=== PATIENT | male | born 1940 | race Caucasian/White ===

== ENCOUNTER 2016-12-13 20:28 | Emergency (ER) | payer MEDICARE ==
[~2016-12-13] VITALS: Ht 177.8 cm; Wt 85.0 kg
[2016-12-13 20:29] VITALS: BP 161/73; PULSE 68; RESP 18; TEMP 97.9; O2SAT 95
[2016-12-13] MEDS ORDERED: PROPARACAINE HCL 0.5% OPHT SOLN 15 ML BTL EACH EYE ONE (21:30)
--- NOTE | 2016-12-13 21:45 | PD ---
HPI Chief Complaint: Eye Problems/Injury Time Seen by Provider: 21:36 Travel History International Travel<30 days: No Contact w/Intl Traveler<30days: No Traveled to known affect area: No History of Present Illness HPI 75-year-old white male presents to emergency department for evaluation of left eye pain. He states that approximately 2 hours prior to arrival he developed sudden discomfort in his left eye while showering at the [facility]. He states that he had foreign body sensation. He is unsure whether a megha of paint or rust had gone into his eye. He states that he had irrigated his eye out with shower water but still persisted with discomfort. He denies any visual changes. No discharge, matting or tearing. No photophobia. He used some Visine without relief. He is up-to-date with immunizations. He denies any recent illness. He does not work contacts. [facility] Past Medical History Narrative Medical Hypertension, hypercholesterolemia, gout, ED, anxiety, depression Cardiovascular Problems: Yes (HTN) Respiratory: Yes (COPD) Tetanus Vaccination: < 5 Years Past Surgical History Narrative Surgical Basal cell carcinoma both forearms Other Surgery: Yes (BT FOREARM SKIN CA REMOVAL) Social History Alcohol Use: No Tobacco Use: No Substance Use: No Allergies-Medications (Allergen,Severity, Reaction): Coded Allergies: No Known Allergies (Unverified , 12/13/16) Review of Systems Except as stated in HPI: all other systems reviewed are Neg General / Constitutional: No: Fever, Chills Eyes: Positive: Redness, Foreign Body Sensation, Pain, No: Diploplia, Blurred Vision, Photophobia, Drainage, Tearing, Visual changes HENT: No: Headaches, Vertigo Cardiovascular: No: Chest Pain or Discomfort, Palpitations Respiratory: No: Cough, Shortness of Breath Gastrointestinal: No: Nausea, Vomiting Physical Exam Narrative GENERAL: This is a well-nourished, well-developed patient, in no apparent distress. Visual acuity in the right eye is 20/30 and 20/40 in the left eye without glasses. SKIN: No rashes, ecchymoses. He has sutures in both forearms. Actinic keratoses scattered. Warm and dry. HEAD: Atraumatic. Normocephalic. EYES: PERRL, EOMI, no discharge or injection in the right eye. No scleral icterus. The left eye is injected. Ophthaine is instilled in both eyes. Lids are flipped and no foreign body seen. Ocular pressure in the right eye is 9 and ocular pressure in the left is 10. Funduscopic exam is unremarkable. Fluorescein stain is negative for corneal abrasion or ulcer. Patient has a pinguecula bilaterally. EARS: Clear NOSE: Nasal turbinates appear normal. THROAT: Mucosa pink and moist. Airway patent. NECK: Trachea midline. supple, moves head freely. LUNGS: Clear to auscultation. CV: Regular in rhythm. ABDOMEN: Soft nontender. EXT: No clubbing cyanosis or edema. Data Data Last Documented VS Vital Signs Date Time Temp Pulse Resp B/P Pulse Ox O2 Delivery O2 Flow Rate FiO2 12/13/16 20:29 97.9 68 18 161/73 95 Room Air Orders Proparacaine 0.5% Opth Soln (Alcaine 0.5 (12/13/16 21:30) MDM Medical Decision Making Medical Screen Exam Complete: Yes Emergency Medical Condition: Yes Medical Record Reviewed: Yes Differential Diagnosis MDM: High Differential diagnoses: Acute conjunctivitis (bacterial, viral, allergic, traumatic), glaucoma, iritis, traumatic globe injury, foreign body, corneal abrasion, corneal ulcer, diabetic retinopathy, photokeratitis, herpes keratitis , CMV retinitis Narrative Course Patient's exam is unrevealing at this time. I've explained to him that he may have had a foreign body which has been resolved now has posttraumatic pain. I' ve also informed him that sometimes retinal problems may present like this and I would recommend a retinal evaluation. This is left eye pain Diagnosis Primary Impression: Acute left eye pain Referrals: Shireen Hernandez MD 1 day Patient Instructions: General Instructions Additional Instructions: Rest. Tylenol for pain. Follow-up with the eye doctor tomorrow for recheck. Return to the ER if any problems. Med/Other Pt SpecificInfo: No Meds Exist/No RX given Disposition: 01 DISCHARGE HOME Condition: Adrian Cline Dec 13, 2016 21:45
== END 2016-12-13 21:50 | disposition home or self-care (01) ==
LOC: NEPB 20:28
DX: H57.12 Ocular pain, left eye (principal); H11.153 Pinguecula, bilateral; I10 Essential (primary) hypertension; E78.00 Pure hypercholesterolemia, unspecified; Z87.39 Personal history of other diseases of the musculoskeletal system and connective tissue; Z86.59 Personal history of other mental and behavioral disorders; Z86.79 Personal history of other diseases of the circulatory system; Z87.09 Personal history of other diseases of the respiratory system
CPT/HCPCS: 99283

== ENCOUNTER 2017-01-19 10:49 | Emergency (ER) | payer MEDICARE ==
[~2017-01-19] VITALS: Ht 180.3 cm; Wt 85.0 kg
[2017-01-19 10:50] VITALS: BP 141/70; PULSE 75; RESP 16; TEMP 98; O2SAT 97
[2017-01-19 11:00] VITALS: BP 151/71; PULSE 60; RESP 20; O2SAT 96
[2017-01-19] MEDS ORDERED: SODIUM CHLOR 0.9% 1000 ML INJ 1,000 ML IV SCH (11:15)
[2017-01-19] MEDS ORDERED: SODIUM CHLORIDE 0.9% FLUSH 10 ML FLUSH IV FLUSH PRN (11:15)
[2017-01-19] MEDS ORDERED: AMBI10TA PO (11:16)
[2017-01-19] MEDS ORDERED: ALLO100T PO (11:16)
[2017-01-19] MEDS ORDERED: LIPI20TA PO (11:16)
[2017-01-19] MEDS ORDERED: AMLO5 PO (11:16)
[2017-01-19] MEDS ORDERED: ALPR.25 PO (11:16)
[2017-01-19] MEDS ORDERED: HYDR-3516 PO (11:16)
[2017-01-19] MEDS ORDERED: ALTASE (11:16)
[2017-01-19] MEDS ORDERED: BUPR150CR PO (11:16)
--- NOTE | 2017-01-19 11:17 | PD ---
HPI Chief Complaint: Pain: Acute or Chronic Time Seen by Provider: 11:17 Travel History International Travel<30 days: No Contact w/Intl Traveler<30days: No Traveled to known affect area: No History of Present Illness HPI 76-year-old male with a history of hypertension, hyperlipidemia, gout, anxiety, chronic hip pain presents to the emergency department for evaluation of left flank pain for 3 days. Patient states 3 days ago he bent over to reach inside his trash can leaning on his left side and felt a pop in his left side. States that he's had pain in his left side and back aggravated with movement for the past 3 days. Describes it as a sharp pain. States that the pain is improved with rest. He states that the pain does radiate to his left abdomen. Denies any fever, chills, nausea, vomiting, diarrhea, constipation, chest pain, shortness of breath, cough or cold symptoms, dysuria. States he has been taking Lortab 5325 mg tablets with some improvement of symptoms. Patient has a history of bladder cancer and prostate cancer, status post resection of bladder tumor and radiation for prostate cancer, states he does self- catheterize as a result. Denies any prior abdominal surgeries. Patient does not have a PCP here in the area, he lives in [place] and is here visiting as he has a boat here. No other complaints. PFSH Past Medical History Cardiovascular Problems: Yes (HTN) COPD: Yes Hypertension: Yes Respiratory: Yes (COPD) Influenza Vaccination: Yes Past Surgical History Other Surgery: Yes (BT FOREARM SKIN CA REMOVAL) Social History Alcohol Use: No Tobacco Use: No Substance Use: No Allergies-Medications (Allergen,Severity, Reaction): Coded Allergies: No Known Allergies (Unverified , 12/13/16) Reported Meds & Prescriptions Reported Meds & Active Scripts Active Aspirin 325 Mg Tab 325 Mg PO DAILY Cipro (Ciprofloxacin HCl) 500 Mg Tab 500 Mg PO BID 7 Days Percocet (Oxycodone-Acetaminophen) 5-325 mg Tab 1 Tab PO Q6H PRN Reported Hydrocodone-Acetaminophen 5-325 mg Tab 1 Tab PO Q4H PRN Xanax (Alprazolam) 0.25 Mg Tab Unknown Dose PO Q4H PRN [Altase] 10 Mg DAILY Norvasc (Amlodipine Besylate) 5 Mg Tab 5 Mg PO DAILY Lipitor (Atorvastatin Calcium) 20 Mg Tab 20 Mg PO HS Allopurinol 100 Mg Tab 100 Mg PO DAILY Ambien (Zolpidem Tartrate) 10 Mg Tab 10 Mg PO HS PRN Wellbutrin SR 12 HR (Bupropion HCl) 150 Mg Tab 150 Mg PO Q12HR Review of Systems Except as stated in HPI: all other systems reviewed are Neg Physical Exam Narrative GENERAL: Well-nourished and well-developed pleasant male patient in no acute distress who is nontoxic appearing. SKIN: Warm and dry. HEAD: Normocephalic and atraumatic. EYES: No injection, drainage, or hyphema noted. PERRLA. EOMI. ENT: No nasal drainage noted. Oropharynx is clear. NECK: Supple and the trachea is midline. CARDIOVASCULAR: Regular rate and rhythm. RESPIRATORY: Breath sounds are equal bilaterally with no accessory muscle use, wheezing, rhonchi, or crackles. CHEST: Tenderness to palpation of left ribs 7 and 8 axillary region extending to back. GASTROINTESTINAL: Tenderness to palpation of left upper and left mid abdomen. Abdomen is soft and nondistended. Negative McBurney's point. Negative Mathur' s sign. MUSCULOSKELETAL: No obvious deformities, swelling, cyanosis, or ecchymosis is present throughout the upper and lower extremities. Patient has full range of motion without any signs of neurovascular compromise. Strength 5/5 upper and lower extremities equal bilaterally. DP pulses are 2+ bilaterally. Capillary refill is within normal limits. BACK: No midline bony point tenderness, or crepitus noted throughout the thoracic and lumbar vertebrae. NEUROLOGICAL: Awake, alert, and oriented. Normal speech and gait. Cranial nerves are grossly intact. Data Data Last Documented VS Vital Signs Date Time Temp Pulse Resp B/P Pulse Ox O2 Delivery O2 Flow Rate FiO2 01/19/17 14:06 58 16 145/73 98 Room Air 01/19/17 10:50 98.0 Orders Complete Blood Count With Diff (01/19/17 11:15) Comprehensive Metabolic Panel (01/19/17 11:15) Lipase (01/19/17 11:15) Urinalysis - C+S If Indicated (01/19/17 11:15) Ct Abd/Pel W Iv Contrast(Rout) (01/19/17 11:15) Iv Access Insert/Monitor (01/19/17 11:15) Ecg Monitoring (01/19/17 11:15) Oximetry (01/19/17 11:15) Sodium Chlor 0.9% 1000 Ml Inj (Ns 1000 M (01/19/17 11:15) Sodium Chloride 0.9% Flush (Ns Flush) (01/19/17 11:15) Chest, Single Ap (01/19/17 11:15) Urine Culture (01/19/17 11:30) Iohexol 350 Inj (Omnipaque 350 Inj) (01/19/17 13:31) Labs Laboratory Tests Test 01/19/17 01/19/17 11:25 11:30 White Blood Count 9.1 TH/MM3 Red Blood Count 4.11 MIL/MM3 Hemoglobin 13.6 GM/DL Hematocrit 38.8 % Mean Corpuscular Volume 94.5 FL Mean Corpuscular Hemoglobin 33.0 PG Mean Corpuscular Hemoglobin 35.0 % Concent Red Cell Distribution Width 13.5 % Platelet Count 212 TH/MM3 Mean Platelet Volume 8.7 FL Neutrophils (%) (Auto) 73.7 % Lymphocytes (%) (Auto) 13.6 % Monocytes (%) (Auto) 11.5 % Eosinophils (%) (Auto) 0.8 % Basophils (%) (Auto) 0.4 % Neutrophils # (Auto) 6.7 TH/MM3 Lymphocytes # (Auto) 1.2 TH/MM3 Monocytes # (Auto) 1.0 TH/MM3 Eosinophils # (Auto) 0.1 TH/MM3 Basophils # (Auto) 0.0 TH/MM3 CBC Comment DIFF FINAL Differential Comment Sodium Level 140 MEQ/L Potassium Level 3.8 MEQ/L Chloride Level 106 MEQ/L Carbon Dioxide Level 26.4 MEQ/L Anion Gap 8 MEQ/L Blood Urea Nitrogen 10 MG/DL Creatinine 1.05 MG/DL Estimat Glomerular Filtration 68 ML/MIN Rate Random Glucose 107 MG/DL Calcium Level 9.3 MG/DL Total Bilirubin 0.6 MG/DL Aspartate Amino Transf 14 U/L (AST/SGOT) Alanine Aminotransferase 21 U/L (ALT/SGPT) Alkaline Phosphatase 87 U/L Total Protein 7.0 GM/DL Albumin 3.6 GM/DL Lipase 158 U/L Urine Color YELLOW Urine Turbidity HAZY Urine pH 5.5 Urine Specific [place] 1.012 Urine Protein TRACE mg/dL Urine Glucose (UA) NEG mg/dL Urine Ketones NEG mg/dL Urine Occult Blood SMALL Urine Nitrite NEG Urine Bilirubin NEG Urine Urobilinogen LESS THAN 2.0 MG/DL Urine Leukocyte Esterase LARGE Urine RBC 16 /hpf Urine WBC 143 /hpf Urine Squamous Epithelial 1 /hpf Cells Urine Renal Epithelial Cells <1 /hpf Urine Bacteria RARE /hpf Microscopic Urinalysis Comment CULTURE INDICATED MDM Medical Decision Making Medical Screen Exam Complete: Yes Emergency Medical Condition: Yes Differential Diagnosis Muscle strain versus muscle spasm versus rib contusion versus fracture versus colitis versus diverticulitis versus pyelonephritis Narrative Course 76-year-old male presents to the emergency department for evaluation of left side pain after bending over several days ago. Patient is afebrile, vital signs are stable. He does have tenderness along the ribs and his pain seems to mostly be musculoskeletal however he does have tenderness in his left mid and upper abdomen. IV access is obtained, labs were drawn and sent. Chest x-ray is been ordered and is pending. CT of the abdomen and pelvis has been ordered and is pending. Chest x-ray is negative for any acute abnormalities. CBC is unremarkable. Urinalysis shows small occult blood, large leukocyte esterase, 16 red blood cells, 143 white blood cells, rare bacteria. CMP is unremarkable. CT of the abdomen and pelvis with IV contrast shows 5 mm nonobstructing left renal stone, diffuse atherosclerotic plaque throughout the aorta and inflamed vessels with a suspected high-grade stenosis of the right common iliac artery. Colonic diverticulosis without acute abnormality. Patient has remained stable and without complaint while here in the emergency department. He does report that he has intermittent right buttock pain aggravated with walking and alleviated with rest, this is been ongoing for years. He is lower extremities are neurovascularly intact, DP pulses are palpable bilaterally and capillary refill is within normal limits. Discussed with the patient that he will need to follow-up with a vascular specialist as an outpatient regarding this atherosclerosis and we will start the patient on aspirin daily. Patient is given the information of local vascular surgeon on- call. The patient will also be prescribed antibiotics for urinary tract infection and pain medication for his left flank pain. Patient verbalizes understanding and agreement with treatment plan. I discussed the case with my attending physician Dr. Sanchez who is aware of the patients history, physical examination findings, and treatment plan. Diagnosis Primary Impression: Left flank pain Additional Impressions: Kidney stone Urinary tract infection Qualified Code: T83.511A - Urinary tract infection associated with catheterization of urinary tract, unspecified indwelling urinary catheter type, initial encounter Atherosclerosis of lower extremity with intermittent claudication Qualified Code: I70.211 - Atherosclerosis of [place] artery of right lower extremity with intermittent claudication Referrals: Ger Mesa MD Patient Instructions: Catheter-associated Urinary Tract Infection (ED), Flank Pain (ED), General Instructions Additional Instructions: Rest. Take medications as prescribed. Do not take Lortab simultaneously with Percocet. Follow-up with a vascular surgeon regarding atherosclerosis of right common iliac artery. Return to the ED for any acute worsening of symptoms. Please print off labs and imaging reports for patient to take with him. Med/Other Pt SpecificInfo: Prescription(s) given Scripts Aspirin 325 Mg [id number] Mg PO DAILY #30 TAB Ref 0 Prov:Vera Sanchez MD 01/19/17 Ciprofloxacin (Cipro)500 Mg [id number] Mg PO BID 7 Days Ref 0 Prov:Vera Sanchez MD 01/19/17 Oxycodone-Acetaminophen (Percocet)5-325 mg Tab1 Tab PO Q6H PRN (PAIN GREATER THAN 6) #15 TAB Ref 0 Prov:Vera Sanchez MD 01/19/17 Disposition: 01 DISCHARGE HOME Condition: Stable Elisa Mar Jan 19, 2017 11:17
[2017-01-19 11:51] LABS: AUTOMATED NEUTROPHIL # 6.7 TH/MM3 (1.8-7.7); BASOPHIL % 0.4 % (0.0-2.0); EOSINOPHIL # 0.1 TH/MM3 (0-0.4); EOSINOPHIL % 0.8 % (0.0-4.0); HEMATOCRIT 38.8 % (39.0-51.0); HEMO FLAGS DIFF FINAL; LYMPH % 13.6 % (9.0-44.0); LYMPHOCYTE # 1.2 TH/MM3 (1.0-4.8); MEAN CELL VOLUME 94.5 FL (80.0-100.0); MONO % 11.5 % (0.0-8.0); NEUT % 73.7 % (16.0-70.0); PLATELET COUNT 212 TH/MM3 (150-450); RED BLOOD COUNT 4.11 MIL/MM3 (4.50-5.90); RED CELL DISTRIBUTION WIDTH 13.5 % (11.6-17.2); WHITE BLOOD COUNT 9.1 TH/MM3 (4.0-11.0)
[2017-01-19 11:56] LABS: BACTERIA, URINE RARE /hpf; BLOOD, URINE SMALL (NEG); COMMENT (UR) CULTURE INDICATED; CULTURE IF INDICATED CULTURE INDICATED; GLUCOSE,URINE NEG (NEG); KETONE, URINE NEG (NEG); NITRITE,URINE NEG (NEG); PH, URINE 5.5 (5.0-8.5); RENAL EPITHELIAL CELLS <1 /hpf; SQUAMOUS EPITHELIAL CELL URINE 1 /hpf (0-5); URINE COLOR YELLOW (YELLW/STRAW)
--- NOTE | 2017-01-19 12:02 | RADRPT ---
EXAM DATE/TIME: 01/19/2017 11:32 [facility] COMPARISON: No previous studies available for comparison. INDICATIONS : Left low chest pain. Left lower ribs impact. MEDICAL HISTORY : None. SURGICAL HISTORY : None. ENCOUNTER: Initial ACUITY: 2 days PAIN SCORE: 4/10 LOCATION: Left lower chest FINDINGS: A single view of the chest demonstrates the lungs to be symmetrically aerated without evidence of mas s, infiltrate or effusion. The cardiomediastinal contours are unremarkable. Osseous structures are intact. CONCLUSION: No acute disease. Maurice Lopez MD FACR on January 19, 2017 at 12:00 Board Certified Radiologist. This report was verified electronically.
[2017-01-19 12:22] LABS: ALKALINE PHOSPHATASE 87 U/L (45-117); TOTAL BILIRUBIN ADULT 0.6 MG/DL (0.2-1.0)
[2017-01-19 12:35] LABS: ALT (GPT) 21 U/L (12-78); ANION GAP 8 MEQ/L (5-15); AST (GOT) 14 U/L (15-37); BICARBONATE 26.4 MEQ/L (21.0-32.0); CHLORIDE 106 MEQ/L (98-107); GLOMERULAR FILTRATION RATE 68 ML/MIN (>89); POTASSIUM 3.8 MEQ/L (3.5-5.1); SODIUM (NA) 140 MEQ/L (136-145)
[2017-01-19 13:14] LABS: BLOOD UREA NITROGEN 10 MG/DL (7-18)
[2017-01-19] MEDS ORDERED: IOHEXOL 350 MG/ML 10 ML VIAL (for RAD DIAG) IV ONE (13:31)
--- NOTE | 2017-01-19 14:03 | RADRPT ---
EXAM DATE/TIME: 01/19/2017 13:10 [facility] COMPARISON: No previous studies available for comparison. INDICATIONS : Left flank pain for 3 days IV CONTRAST: 80 cc Omnipaque 350 (iohexol) IV ORAL CONTRAST: No oral contrast ingested. RADIATION DOSE: 9.68 CTDIvol (mGy) MEDICAL HISTORY : Carcinoma, bladder. Carcinoma, prostate. Hypertension. SURGICAL HISTORY : Prostatectomy. ENCOUNTER: Initial ACUITY: 1 day PAIN SCALE: 9/10 LOCATION: pelvis Abdomen TECHNIQUE: Volumetric scanning of the abdomen and pelvis was performed. Using automated exposure control and ad justment of the mA and/or kV according to patient size, radiation dose was kept as low as reasonably achievable to obtain optimal diagnostic quality images. FINDINGS: LOWER LUNGS: Mild chronic interstitial changes within the subpleural aspects of both lung bases. LIVER: Homogeneous density without lesion. There is no dilation of the biliary tree. No calcified gallston es. SPLEEN: Normal size without lesion. PANCREAS: Within normal limits. KIDNEYS: Normal in size and shape. There is no mass or hydronephrosis. A 5 mm nonobstructing stone is seen in volving the mid pole of the left kidney. Tiny subcentimeter cortical renal cysts bilaterally. ADRENAL GLANDS: Within normal limits. VASCULAR: Diffuse calcified atherosclerotic plaque of the abdominal aorta. Suspected high-grade inflow stenosis involving the right common iliac artery origin. BOWEL/MESENTERY: The stomach, small bowel, and colon demonstrate no acute abnormality. There is no free intraperitone al air or fluid. Scattered colonic diverticuli without acute inflammation. ABDOMINAL WALL: Within normal limits. RETROPERITONEUM: There is no lymphadenopathy. BLADDER: No wall thickening or mass. REPRODUCTIVE: Within normal limits. INGUINAL: There is no lymphadenopathy or hernia. MUSCULOSKELETAL: Within normal limits for patient age. CONCLUSION: 1. No acute abnormality. 2. 5 mm nonobstructing left renal stone. 3. Diffuse atherosclerotic plaque throughout the aorta and inflow vessels with a suspected high-grade stenosis of the right common iliac artery. Clinical evaluation for any signs of right buttock or low er extremity claudication suggested. 4. Colonic diverticulosis without acute abnormality. Remberto Pinzon Jr., MD on January 19, 2017 at 13:55 Board Certified Radiologist. This report was verified electronically.
[2017-01-19 14:06] VITALS: BP 145/73; PULSE 58; RESP 16; O2SAT 98
[2017-01-19] MEDS ORDERED: PERC5TAB12 PO (14:21)
[2017-01-19] MEDS ORDERED: CIPR-9 PO (14:21)
[2017-01-19] MEDS ORDERED: ASPI325T PO (14:21)
== END 2017-01-19 14:45 | disposition home or self-care (01) ==
LOC: NEPC 10:49
DX: R10.12 Left upper quadrant pain (principal); N20.0 Calculus of kidney; T83.511A Infection and inflammatory reaction due to indwelling urethral catheter, initial encounter; I70.211 Atherosclerosis of native arteries of extremities with intermittent claudication, right leg; I10 Essential (primary) hypertension; E78.5 Hyperlipidemia, unspecified; Z85.51 Personal history of malignant neoplasm of bladder; Z85.46 Personal history of malignant neoplasm of prostate; Z87.39 Personal history of other diseases of the musculoskeletal system and connective tissue; Z86.59 Personal history of other mental and behavioral disorders; Z87.09 Personal history of other diseases of the respiratory system
CPT/HCPCS: 71010; 74177; 80053; 81001; 83690; 85025; 87086; 96360; 99284; J7030; Q9967

== ENCOUNTER 2017-03-28 22:51 | Emergency (ER) | payer MEDICARE ==
[~2017-03-28] VITALS: Ht 177.8 cm; Wt 81.0 kg
[~2017-03-28 22:51] MED LIST: ALLO100T PO; ALPR.25 PO; ALTASE; AMBI10TA PO; AMLO5 PO; ASPI325T PO; BUPR150CR PO; CIPR-9 PO; HYDR-3516 PO; LIPI20TA PO; PERC5TAB12 PO
[2017-03-28 22:54] VITALS: BP 168/76; PULSE 69; RESP 16; TEMP 98; O2SAT 99
--- NOTE | 2017-03-28 23:15 | PD ---
HPI Chief Complaint: ENT Complaint Time Seen by Provider: 23:11 Travel History International Travel<30 days: No Contact w/Intl Traveler<30days: No Traveled to known affect area: No History of Present Illness HPI 76-year-old white male presents to emergency Department with complaints of possible foreign body in his left ear canal. He states that he is concerned that he may of loss the plug to his hearing aid in the ear canal. He states that it just does not fit sound right. He denies any fever chills. No runny nose, cough or congestion. No pain. He denies any nausea vomiting. PFSH Past Medical History Cardiovascular Problems: Yes (HTN) COPD: Yes Hypertension: Yes Respiratory: Yes (COPD) Tetanus Vaccination: < 5 Years Past Surgical History Other Surgery: Yes (BT FOREARM SKIN CA REMOVAL) Social History Alcohol Use: No Tobacco Use: No Substance Use: No Allergies-Medications (Allergen,Severity, Reaction): Coded Allergies: No Known Allergies (Unverified , 12/13/16) Reported Meds & Prescriptions Reported Meds & Active Scripts Active Aspirin 325 Mg Tab 325 Mg PO DAILY Cipro (Ciprofloxacin HCl) 500 Mg Tab 500 Mg PO BID 7 Days Percocet (Oxycodone-Acetaminophen) 5-325 mg Tab 1 Tab PO Q6H PRN Reported Hydrocodone-Acetaminophen 5-325 mg Tab 1 Tab PO Q4H PRN Xanax (Alprazolam) 0.25 Mg Tab Unknown Dose PO Q4H PRN [Altase] 10 Mg DAILY Norvasc (Amlodipine Besylate) 5 Mg Tab 5 Mg PO DAILY Lipitor (Atorvastatin Calcium) 20 Mg Tab 20 Mg PO HS Allopurinol 100 Mg Tab 100 Mg PO DAILY Ambien (Zolpidem Tartrate) 10 Mg Tab 10 Mg PO HS PRN Wellbutrin SR 12 HR (Bupropion HCl) 150 Mg Tab 150 Mg PO Q12HR Review of Systems Except as stated in HPI: all other systems reviewed are Neg General / Constitutional: No: Fever HENT: Positive: Other (foreign body sensation left ear), No: Headaches, Sore Throat, Rhinitis, Congestion, Ear Discharge, Earache Cardiovascular: No: Chest Pain or Discomfort Physical Exam Narrative GENERAL: Well-developed, well-nourished in no acute distress. Nontoxic appearing. HEAD: Normocephalic, atraumatic. EYES: Pupils equal round and reactive. Extraocular motions intact. No scleral icterus. No injection or drainage. ENT: TMs clear without erythema. The external auditory canals clear. No foreign body noted in the ears. Nose: clear . Posterior pharynx is pink and moist. No tonsillar edema or exudate. Uvula midline. Airway patent. NECK: Trachea midline.Supple, nontender, moves head freely. No central bony tenderness or spasm. CARDIOVASCULAR: Regular rate and rhythm without murmurs, gallops, or rubs. RESPIRATORY: Clear to auscultation. Breath sounds equal bilaterally. No wheezes , rales, or rhonchi. GASTROINTESTINAL: Abdomen soft, non-tender, nondistended. No hepato-splenomegaly , or palpable masses. No guarding. EXTREMITIES: No clubbing, cyanosis, or edema. No joint tenderness, effusion, or edema noted. BACK: Nontender without deformity or crepitance. No flank tenderness. Data Data Last Documented VS Vital Signs Date Time Temp Pulse Resp B/P Pulse Ox O2 Delivery O2 Flow Rate FiO2 03/28/17 22:54 98.0 69 16 168/76 99 MDM Medical Decision Making Medical Screen Exam Complete: Yes Emergency Medical Condition: Yes Medical Record Reviewed: Yes Differential Diagnosis Differential diagnoses: Foreign body, otitis media, serous otitis media, otitis externa Narrative Course Patient's exam is unremarkable. There is no foreign body noted. His TMs are intact. This is foreign body sensation left ear Diagnosis Primary Impression: Foreign body sensation in left ear canal Patient Instructions: General Instructions Additional Instructions: Rest. Apply a new earpiece to your hearing aid before applying it. Return to the ER for any problems. Med/Other Pt SpecificInfo: No Meds Exist/No RX given Disposition: 01 DISCHARGE HOME Condition: Stable Adrian Jimenez Mar 28, 2017 23:15
== END 2017-03-28 23:36 | disposition home or self-care (01) ==
LOC: NEPK 22:51
DX: R20.8 Other disturbances of skin sensation (principal); I10 Essential (primary) hypertension
CPT/HCPCS: 99281

== ENCOUNTER 2017-06-23 17:42 | Emergency (ER) | payer MEDICARE ==
[~2017-06-23] VITALS: Ht 177.8 cm; Wt 79.5 kg
[2017-06-23 17:47] VITALS: BP 140/72; PULSE 72; RESP 16; TEMP 98.6; O2SAT 100
[2017-06-23] MEDS ORDERED: BUPIVACAINE HCL PF 0.5% 10 ML VIAL INFIL ONE (18:00)
[2017-06-23] MEDS ORDERED: TETANUS/DIPHTHERIA TOXOID ADULT 0.5 ML VIAL IM ONE (18:00)
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
[2017-06-23] MEDS ORDERED: oxyCODONE/ACETAMINOPHEN 5 MG/325 MG TAB PO ONE (19:00)
[2017-06-23 19:20] VITALS: BP 130/74; PULSE 72; RESP 18; O2SAT 98
[2017-06-23] MEDS ORDERED: POVIDONE IODINE 10% OINT 30 GM TUBE TOPICAL ONE (19:30)
[2017-06-23] MEDS ORDERED: PERC5TAB12 PO (19:46)
[2017-06-23] MEDS ORDERED: CEPH-460 PO (19:46)
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
[2017-06-23 22:00] VITALS: BP 140/74
== END 2017-06-23 22:07 | disposition home or self-care (01) ==
LOC: NEPD 17:42
DX: S61.002A Unspecified open wound of left thumb without damage to nail, initial encounter (principal); W33.01XA Accidental discharge of shotgun, initial encounter; Y92.009 Unspecified place in unspecified non-institutional (private) residence as the place of occurrence of the external cause; Z23 Encounter for immunization; I10 Essential (primary) hypertension; J44.9 Chronic obstructive pulmonary disease, unspecified
CPT/HCPCS: 12001; 73140; 90471; 90714